=== PATIENT | male | born 1950 | race Caucasian/White ===

== ENCOUNTER → 2019-12-14 | Outpatient (CLI) | payer MEDICARE ==
[2019-12-14 11:51] LABS: HEMOGLOBIN A1c 11.8 %
== END ==
LOC: M WUC 08:27
PROVIDERS: ATTEND Family Medicine Adult Medicine
DX: E11.9 Type 2 diabetes mellitus without complications (principal)

== ENCOUNTER → 2020-06-29 | Outpatient (CLI) | payer MEDICARE ==
[~2020-06-29] MED LIST: JANU50TA22 PO; LISI10TA4 PO; METF500T13 PO
== END ==
LOC: M LABSMTC 08:11
PROVIDERS: ATTEND Anesthesiology
DX: Z01.812 Encounter for preprocedural laboratory examination (principal); Z20.828 Contact with and (suspected) exposure to other viral communicable diseases
CPT/HCPCS: C9803; U0003

== ENCOUNTER 2020-07-04 11:15 | Day surgery (SDC) | payer MEDICARE ==
[~2020-07-04] VITALS: Ht 175.3 cm; Wt 110.6 kg
[~2020-07-04 11:15] MED LIST changes: +BSS IRR 500ML/OMIDRIA 4ML IRR BAG (OR ONLY) (J1097 PER ML) As Ordered ONE; +CEFUROXIME 1MG/0.1ML INTRACAMERAL INJ As Ordered ONE; +DUOVISC (0.50ML VISCOAT/0.55ML PROVISC) OPHTH KIT As Ordered ONE; +OFLOXACIN 0.3 % (OCUFLOX) OPTH SOL 5ML OS ONE; +PHENYLEPHRINE 2.5% OPHTH SOL 2ML OS ONE; +POVIDONE-IODINE 5% OPHTH PREP SOL 30ML As Ordered ONE; +PROPARACAINE 0.5% OPHTH SOL 15ML OS ONE; +TROPICAMIDE 1% OPHTH SOLN 2ML OS ONE
[2020-07-04] MEDS ORDERED: fentaNYL 100 MCG/2 ML INJECTION (J3010) As Ordered ONE (12:57)
[2020-07-04] MEDS ORDERED: MIDAZOLAM INJ 2MG/2ML VIAL (J2250 PER 1MG) As Ordered ONE (12:57)
[2020-07-04 13:50] VITALS: BP 141/74
== END 2020-07-04 14:10 | disposition home or self-care (01) ==
LOC: M SDC 11:15
PROVIDERS: ATTEND Ophthalmology
DX: H25.12 Age-related nuclear cataract, left eye (principal); E11.9 Type 2 diabetes mellitus without complications; Z79.84 Long term (current) use of oral hypoglycemic drugs; Z79.899 Other long term (current) drug therapy
CPT/HCPCS: 66984; J1097; J2250; J3010; V2632

== ENCOUNTER → 2020-07-06 | Outpatient (CLI) | payer MEDICARE ==
[~2020-07-06] MED LIST changes: -BSS IRR 500ML/OMIDRIA 4ML IRR BAG (OR ONLY) (J1097 PER ML) As Ordered ONE; -CEFUROXIME 1MG/0.1ML INTRACAMERAL INJ As Ordered ONE; -DUOVISC (0.50ML VISCOAT/0.55ML PROVISC) OPHTH KIT As Ordered ONE; -OFLOXACIN 0.3 % (OCUFLOX) OPTH SOL 5ML OS ONE; -PHENYLEPHRINE 2.5% OPHTH SOL 2ML OS ONE; -POVIDONE-IODINE 5% OPHTH PREP SOL 30ML As Ordered ONE; -PROPARACAINE 0.5% OPHTH SOL 15ML OS ONE; -TROPICAMIDE 1% OPHTH SOLN 2ML OS ONE
== END ==
LOC: M LABSMTC 07:56
PROVIDERS: ATTEND Anesthesiology
DX: Z01.812 Encounter for preprocedural laboratory examination (principal); Z20.828 Contact with and (suspected) exposure to other viral communicable diseases
CPT/HCPCS: C9803; U0003

== ENCOUNTER 2020-07-11 08:34 | Day surgery (SDC) | payer MEDICARE ==
[~2020-07-11] VITALS: Ht 175.3 cm; Wt 111.1 kg
[~2020-07-11 08:34] MED LIST changes: +CEFUROXIME 1MG/0.1ML INTRACAMERAL INJ As Ordered ONE; +DUOVISC (0.50ML VISCOAT/0.55ML PROVISC) OPHTH KIT As Ordered ONE; +OFLOXACIN 0.3 % (OCUFLOX) OPTH SOL 5ML OD ONE; +PHENYLEPHRINE 2.5% OPHTH SOL 2ML OD ONE; +POVIDONE-IODINE 5% OPHTH PREP SOL 30ML As Ordered ONE; +PROPARACAINE 0.5% OPHTH SOL 15ML OD ONE; +TROPICAMIDE 1% OPHTH SOLN 2ML OD ONE
[2020-07-11] MEDS ORDERED: MIDAZOLAM INJ 2MG/2ML VIAL (J2250 PER 1MG) As Ordered ONE (10:02)
[2020-07-11] MEDS ORDERED: fentaNYL 100 MCG/2 ML INJECTION (J3010) As Ordered ONE (10:02)
[2020-07-11] MEDS ORDERED: BSS IRR 500ML/OMIDRIA 4ML IRR BAG (OR ONLY) (J1097 PER ML) As Ordered ONE (10:05)
[2020-07-11 10:35] VITALS: BP 135/63
== END 2020-07-11 11:06 | disposition home or self-care (01) ==
LOC: M SDC 08:34
PROVIDERS: ATTEND Ophthalmology
DX: H25.11 Age-related nuclear cataract, right eye (principal); E11.9 Type 2 diabetes mellitus without complications; Z79.84 Long term (current) use of oral hypoglycemic drugs; Z79.899 Other long term (current) drug therapy
CPT/HCPCS: 66984; J1097; J2250; J3010; V2632

== ENCOUNTER 2021-12-07 13:25 | Emergency (ER) | payer MEDICARE ==
[~2021-12-07] VITALS: Ht 177.8 cm; Wt 121.7 kg
[~2021-12-07 13:25] MED LIST changes: -CEFUROXIME 1MG/0.1ML INTRACAMERAL INJ As Ordered ONE; -DUOVISC (0.50ML VISCOAT/0.55ML PROVISC) OPHTH KIT As Ordered ONE; +LISI10TA22 PO; -LISI10TA4 PO; -OFLOXACIN 0.3 % (OCUFLOX) OPTH SOL 5ML OD ONE; -PHENYLEPHRINE 2.5% OPHTH SOL 2ML OD ONE; -POVIDONE-IODINE 5% OPHTH PREP SOL 30ML As Ordered ONE; -PROPARACAINE 0.5% OPHTH SOL 15ML OD ONE; -TROPICAMIDE 1% OPHTH SOLN 2ML OD ONE
[2021-12-07 13:26] VITALS: BP 135/82
[2021-12-07] MEDS ORDERED: CIPR0.3S6 (13:49)
[2021-12-07] MEDS ORDERED: JANU50TA4 (13:49)
[2021-12-07] MEDS ORDERED: LISI20TA33 (13:49)
[2021-12-07] MEDS ORDERED: SERT50TA29 (13:49)
[2021-12-07] MEDS ORDERED: FLUORESCEIN OPHTH 1 MG STRIP OD ONE (13:50)
[2021-12-07] MEDS ORDERED: PROPARACAINE 0.5% OPHTH SOL 15ML OD ONE (13:50)
[2021-12-07] MEDS ORDERED: ERYT5OIN25 OP (14:56)
[2021-12-07] MEDS ORDERED: ERYTHROMYCIN OPHTH OINT OD ONE (15:20)
== END 2021-12-07 15:30 | disposition home or self-care (01) ==
LOC: M ED 13:25
DX: S05.01XA Injury of conjunctiva and corneal abrasion without foreign body, right eye, initial encounter (principal); Y92.9 Unspecified place or not applicable; Y93.9 Activity, unspecified; Y99.9 Unspecified external cause status

== ENCOUNTER 2024-01-06 10:20 | Emergency (ER) | payer MEDICARE ==
[~2024-01-06] VITALS: Ht 177.8 cm; Wt 147.0 kg
[~2024-01-06 10:20] MED LIST changes: +CIPR0.3S37; +ERYT5OIN25 OP; +JANU50TA4 PO; +LISI20TA33; +SERT50TA29
[2024-01-06] MEDS ORDERED: LISI30TA4 PO (10:31)
[2024-01-06] MEDS ORDERED: HOME MED LIST COMPLETE! XX SCH (11:20)
[2024-01-06 11:21] LABS: BASO % 0.4 % (0.0-1.0); EOS # 0.1 10^3/uL (0.0-0.5); EOS % 1.2 % (0.0-3.0); HEMATOCRIT 40.8 % (42.0-52.0); LYMPH # 1.6 10^3/uL (1.5-5.0); LYMPH % 27.9 % (24.0-44.0); MEAN CORPUSCULAR HEMOGLOBIN 31.5 pg (27.0-33.0); MEAN CORPUSCULAR HGB CONC 34.3 g/dl (32.0-36.5); MEAN CORPUSCULAR VOLUME 91.9 fl (80.0-96.0); MONO # 0.6 10^3/uL (0.0-0.8); MONO % 9.8 % (2.0-8.0); NEUTROPHILS # 3.5 10^3/uL (1.5-8.5); NEUTROPHILS % 60.5 % (36.0-66.0); PLATELET COUNT, AUTOMATED 130 10^3/uL (150-450); RED BLOOD COUNT 4.44 10^6/uL (4.30-6.10); WHITE BLOOD COUNT 5.7 10^3/uL (4.0-10.0)
[2024-01-06 11:32] LABS: INR 1.07; PROTHROMBIN TIME 13.6 SECONDS (12.5-14.5)
[2024-01-06 13:11] LABS: CK-MB VALUE MASS 4.3 NG/ML (<3.6)
[2024-01-06 13:14] LABS: ALBUMIN 3.9 G/DL (3.2-5.2); ALKALINE PHOSPHATASE 37 U/L (46-116); ALT/SGPT 44 U/L (7.0-40); AST/SGOT 30 U/L (<34); BILIRUBIN,DIRECT 0.2 MG/DL (<0.4); BILIRUBIN,TOTAL 0.7 MG/DL (0.3-1.2); BLOOD UREA NITROGEN 22 MG/DL (9-23); CALCIUM LEVEL 9.5 MG/DL (8.3-10.6); CARBON DIOXIDE LEVEL 27 MMOL/L (20-31); CHLORIDE LEVEL 106 MMOL/L (98-107); CREATININE FOR GFR 0.84 MG/DL (0.70-1.30); GLOMERULAR FILTRATION RATE > 60.0 (>42); GLUCOSE, FASTING 132 MG/DL (74-106); POTASSIUM SERUM 4.6 MMOL/L (3.5-5.1); SODIUM LEVEL 139 MMOL/L (136-145); TOTAL PROTEIN 6.6 G/DL (5.7-8.2)
[2024-01-06 13:15] LABS: THYROXINE (T4) 8.7 UG/DL (4.5-10.9)
[2024-01-06 13:16] LABS: THYROID STIMULATING HORMONE 2.495 uIU/ML (0.55-4.78)
[2024-01-06 13:19] LABS: CPK CREATINE PHOSPHOKINASE 256 U/L (46-171); MB/CK RELATIVE INDEX 1.67 (< OR =4)
[2024-01-06] MEDS ORDERED: ISOVUE-370 76% 100ML VIAL As Ordered ONE (13:52)
[2024-01-06 14:02] LABS: CK-MB VALUE MASS 4.7 NG/ML (<3.6)
[2024-01-06 14:04] LABS: MB/CK RELATIVE INDEX 1.89 (< OR =4)
[2024-01-06] MEDS ORDERED: CLOP75TA99 PO (15:39)
[2024-01-06] MEDS ORDERED: ASPI81TA26 PO (15:39)
[2024-01-06] MEDS ORDERED: ATOR40TA75 PO (15:39)
[2024-01-06] MEDS ORDERED: NITR0.4S14 SL (15:39)
[2024-01-06] MEDS ORDERED: TOPR25TA PO (15:39)
[2024-01-06] MEDS: CLOPIDOGREL 75 MG TAB PO STA (15:53)
[2024-01-06 15:54] VITALS: BP 153/67
[2024-01-06] MEDS: METOPROLOL SUCC *XL* 25MG TAB (TopROL *XL*) PO ONE (15:54)
[2024-01-06 17:44] VITALS: BP 118/56; TEMP 97.7; O2SAT 97
== END 2024-01-06 18:00 | disposition home or self-care (01) ==
LOC: M ED 11:46
DX: R07.9 Chest pain, unspecified (principal); I20.9 Angina pectoris, unspecified; I10 Essential (primary) hypertension; Z79.1 Long term (current) use of non-steroidal anti-inflammatories (NSAID); Z79.84 Long term (current) use of oral hypoglycemic drugs; Z79.899 Other long term (current) drug therapy
CPT/HCPCS: 36415; 71045; 71275; 80048; 80076; 82550; 82553; 83605; 83880; 84436; 84443; 84484; 85025; 85610; 93005; 93041; 94760; 99285; Q9967